=== PATIENT | female | born 2000 | race African-American/Black ===

== ENCOUNTER 2023-03-19 13:03 | Emergency (ER) | payer OTHER, SELFPAY ==
[2023-03-19 13:18] VITALS: BP 116/77; PULSE 116; RESP 16; O2SAT 100
--- NOTE | 2023-03-19 13:30 | ED.URI ---
HPI - URI/Sore Throat General Chief Complaint: Upper Respiratory Infection Stated Complaint: Sore throat Source: patient and RN notes reviewed Mode of arrival: ambulatory Limitations: no limitations History of Present Illness HPI Narrative: 22-year-old female presents with concern for sore throat, rhinorrhea, nasal congestion started yesterday. She denies fever, aches, chills, sweats. She reports she was concerned because 2 weeks ago she was treated with Rocephin for gonorrhea and she was concerned she could have gonorrhea in her throat. She reports she has not had any new exposure since she was treated for gonorrhea. MD elicited complaint: sore throat, rhinorrhea and nasal congestion Related Data Home Medications Medication Instructions Recorded Confirmed Nexplanon 03/19/23 Allergies Allergy/AdvReac Type Severity Reaction Status Date / Time No Known Allergies Allergy Verified 03/19/23 13:08 Review of Systems Review of Systems: CONSTITUTIONAL: Denies malaise, chills, sweats, or fever. EYES: Denies visual changes, redness, or discharge. ENT: Reports rhinorrhea, congestion, sore throat. Denies sinus pain, otalgia CARDIOVASCULAR: Denies chest pain, palpitations, or edema. RESPIRATORY: Denies cough. Denies dyspnea. GASTROINTESTINAL: Denies abdominal pain, nausea, vomiting, diarrhea SKIN: Denies rash or itching. MUSCULOSKELETAL: Denies myalgia. NEUROLOGIC: Denies headache. All systems reviewed & are unremarkable except as noted in HPI and below PMFSH Comments At time of signature, agree with nursing past medical, surgical, social and family history. There is no relevant family history pertinent to the presenting complaint Exam Narrative: GENERAL: Well-appearing, well-nourished, and in no acute distress. HEAD: Normocephalic EYES: PERRLA, conjunctivae clear ENT: Nares clear, turbinates edematous and erythematous, clear discharge. Mucous membranes moist. TM pearly antony with sharp light reflex bilaterally; no tragal tenderness. Oropharynx not erythematous without lesions. Tonsils not enlarged and without exudate, no drooling, no hoarseness, no trismus, uvula midline. NECK: Supple. No lymphadenopathy CHEST: Clear to auscultation, breath sounds equal. No wheezing, rhonchi, rales, or stridor. No respiratory distress, speaks in full sentences. HEART: Regular rate and rhythm. No murmur heard. SKIN: Warm, dry, no rash. NEURO: Alert and oriented x3. PSYCH: Normal mood and affect Course Course Emergency Course: Patient is aware of diagnosis, understands and agrees to treatment plan. Anticipatory guidance given. Patient agrees to follow-up as directed and is aware of reasons to seek care at the emergency department. Portions of this record may have been created with voice recognition software Level of Care: Express Care Visit Vital Signs Vital signs: Vital Signs Pulse Rate 116 H 03/19/23 13:18 Respiratory Rate 16 03/19/23 13:18 Blood Pressure 116/77 03/19/23 13:18 Pulse Oximetry 100 03/19/23 13:18 Oxygen Delivery Room Air 03/19/23 13:18 Pulse Rate 116 H 03/19/23 13:18 Respiratory Rate 16 03/19/23 13:18 Blood Pressure 116/77 03/19/23 13:18 Pulse Oximetry 100 03/19/23 13:18 Oxygen Delivery Room Air 03/19/23 13:18 Reviewed. MDM - URI/Sore Throat MDM Narrative Medical decision making narrative: Differential diagnosis considered: Lopez virus, strep pharyngitis, allergic rhinitis, upper respiratory tract infection, sinusitis, rhinosinusitis, nasopharyngitis. viral pharyngitis, otitis media, otitis externa, pneumonia, bronchitis, viral cough syndrome, viral syndrome, and influenza. Exam findings show no acute concerns or changes; patient is non-toxic appearing and is in no distress. Patient is appropriate for outpatient treatment and follow-up. Lab Data Attestation: I reviewed the patient's lab results. Critical Care Time Critical Care Time Critical Care Time: No
[2023-03-19 13:31] VITALS: BP 116/77; PULSE 116; RESP 16; O2SAT 100
== END 2023-03-19 13:45 | disposition home or self-care (01) ==
PROVIDERS: Emergency Provider Nurse Practitioner; PCP Hospitalist
DX: J06.9 Acute upper respiratory infection, unspecified (principal)
CPT/HCPCS: 87081; 87880; 99213; G0463

== ENCOUNTER 2023-04-28 12:25 | Emergency (ER) | payer OTHER, SELFPAY ==
[2023-04-28 12:43] VITALS: BP 126/90; PULSE 97; RESP 16; TEMP 35.2; O2SAT 99
--- NOTE | 2023-04-28 12:55 | ED.FEMALEGU ---
HPI - Female Genitourinary General Chief complaint: Urogenital-Female Stated complaint: UTI Time Seen by Provider: 04/28/23 12:50 Source: patient and RN notes reviewed Mode of arrival: ambulatory Limitations: no limitations History of Present Illness HPI Narrative: Patient presents today complaining of frequency and urgency since yesterday with dysuria and cloudy urine since this morning. Denies abdominal pain, back pain, fever, nausea or vomiting. She has tried no [id number] treatment prior to arrival. LMP was 2 weeks ago. Related Data Home Medications Medication Instructions Recorded Confirmed Nexplanon 03/19/23 Allergies Allergy/AdvReac Type Severity Reaction Status Date / Time No Known Allergies Allergy Verified 04/28/23 12:27 Review of Systems Review of Systems: CONSTITUTIONAL: Denies body aches, fever, chills, or sweats. EYES: Denies visual changes, redness, or discharge. ENT: Denies rhinorrhea, congestion, sore throat, or otalgia. CARDIOVASCULAR: Denies chest pain, palpitations, or edema. RESPIRATORY: Denies cough or dyspnea. GASTROINTESTINAL: Denies abdominal pain, nausea, vomiting, or diarrhea. GENITOURINARY: + urgency, frequency, dysuria, cloudy urine SKIN: Denies rash, itching, or wounds. MUSCULOSKELETAL: Denies back pain, joint pain, or myalgia. NEUROLOGIC: Denies headache, numbness, tingling, or weakness. PSYCH: Denies depression or anxiety. PMFSH Comments At time of signature, I have reviewed and agree with nursing past medical, surgical, social and family history unless otherwise noted. Please see nursing chart for further information. There is no relevant family history pertinent to the presenting complaint Exam Narrative: GENERAL: Well-appearing, well-nourished, and in no acute distress. HEAD: Normocephalic, atraumatic. EYES: EOMI. No redness or drainage. Conjunctivae normal. ENT: Mucous membranes pink and moist. Supple. No lymphadenopathy. CHEST: No respiratory distress. Clear to auscultation. HEART: Regular rate and rhythm. No murmur appreciated. ABDOMEN: Soft, nontender, nondistended, normal active bowel sounds.-CVAT EXTREMITIES: Normal range of motion. No edema. SKIN: Warm, dry, no rash. Capillary refill normal. Normal skin turgor. NEURO: No focal deficits. Alert and oriented x3. Gait steady. PSYCH: Normal affect. No signs of depression or anxiety. Course Course Level of Care: Express Care Visit Vital Signs Vital signs: Vital Signs Temperature 95.3 F L 04/28/23 12:43 Pulse Rate 97 04/28/23 12:43 Respiratory Rate 16 04/28/23 12:43 Blood Pressure 126/90 04/28/23 12:43 Pulse Oximetry 99 04/28/23 12:43 Oxygen Delivery Room Air 04/28/23 12:43 Temperature 95.3 F L 04/28/23 12:43 Pulse Rate 97 04/28/23 12:43 Respiratory Rate 16 04/28/23 12:43 Blood Pressure 126/90 04/28/23 12:43 Pulse Oximetry 99 04/28/23 12:43 Oxygen Delivery Room Air 04/28/23 12:43 Reviewed. Pt has been instructed to follow up with her PCP regarding her elevated blood pressure today. MDM - Female Genitourinary MDM Narrative Medical decision making narrative: Patient's symptoms and urinalysis are consistent with UTI. Will treat with Macrobid. Anticipatory guidance given. Differential Diagnosis Differential diagnosis: Likely urinary tract infection, vaginitis, cystitis and other (Pyelonephritis, interstitial cystitis) Lab Data Attestation: I reviewed the patient's lab results. Labs: Urine Glucose Negative Reference Range: Negative Urine Bilirubin Negative Reference Range: Negative Urine Ketone Negative Reference Range: Negative Urine Specific Calvin 1.025 Reference Range:1.001-1.035
== END 2023-04-28 13:06 | disposition home or self-care (01) ==
PROVIDERS: Emergency Provider Nurse Practitioner; PCP Hospitalist
DX: N30.01 Acute cystitis with hematuria (principal)
CPT/HCPCS: 81003; 87077; 87086; 87186; 99213; G0463